=== PATIENT | female | born 1985 | race Hispanic/Latino ===

== ENCOUNTER 2020-04-09 22:32 | Observation (INO) | payer SELFPAY ==
[~2020-04-09] VITALS: Ht 167.6 cm; Wt 110.2 kg
[2020-04-09] MEDS ORDERED: LACTATED RINGERS 1000ML 1,000 ML IV SCH (22:45)
[2020-04-09] MEDS: LACTATED RINGERS 1000ML 1,000 ML IV SCH (23:15)
[2020-04-09 23:26] VITALS: BP 116/75
[2020-04-09] MEDS ORDERED: CALDOLOR 800MG+NS 250ML 250 ML IV PRN (23:30)
[2020-04-09] MEDS ORDERED: CITRIC ACID/SODIUM CITRATE 30 ML UDCUP PO PRN (23:30)
[2020-04-10] MEDS: LACTATED RINGERS 1000ML 1,000 ML IV SCH (00:39)
[2020-04-10] MEDS ORDERED: CEFAZOLIN SODIUM 1 GM VIAL IVP PRN (08:00)
== END 2020-04-10 08:00 | disposition home or self-care (01) ==
LOC: EDH 22:32 → LDH 22:33
PROVIDERS: ADMIT Obstetrics & Gynecology; ATTEND Obstetrics & Gynecology
DX: O36.8130 Decreased fetal movements, third trimester, not applicable or unspecified (principal); O60.03 Preterm labor without delivery, third trimester; Z20.828 Contact with and (suspected) exposure to other viral communicable diseases; Z3A.40 40 weeks gestation of pregnancy
CPT/HCPCS: 36415 ×2; 59025; 80305; 81001; 85027; 86592; 86701; 86850; 86900; 86901; 87088; 87340; 87390; 96360; 96361; 99284; G0378 ×3; J7120; U0003

== ENCOUNTER 2020-04-12 05:48 | Inpatient (IN) | payer OTHER ==
[~2020-04-12] VITALS: Ht 160 cm; Wt 112.9 kg
[~2020-04-12 05:48] MED LIST: FOLI0.8C PO; PNV1TABL62 PO
[2020-04-12] MEDS ORDERED: CALDOLOR 800MG+NS 250ML 250 ML IV PRN (06:00)
[2020-04-12] MEDS ORDERED: CEFAZOLIN SODIUM 1 GM VIAL IVP PRN (06:00)
[2020-04-12] MEDS ORDERED: LACTATED RINGERS 1000ML 1,000 ML IV SCH (06:00)
[2020-04-12 06:58] LABS: HEMATOCRIT 37.4 % (36-48); MEAN CORPUSCULAR HGB CONC 31.8 g/dL (32.0-36.0); RED BLOOD CELL COUNT(AUTO) 4.25 MIL/uL (4.00-5.50); RED CELL DISTRIBUTION WIDTH 15.2 % (11.0-15.5); WHITE BLOOD COUNT (AUTO) 5.9 K/uL (4.8-10.8)
[2020-04-12] MEDS ORDERED: DURAMORPH PF1 MG/ML 10ML AMP IV ONE (11:42)
[2020-04-12] MEDS ORDERED: CEFAZOLIN SODIUM 1 GM VIAL IVP ONE (11:45)
[2020-04-12] MEDS ORDERED: OXYTOCIN 10 USP UNITS/ML ONE (11:56)
[2020-04-12] MEDS ORDERED: ONDANSETRON HCL 4 MG/2 ML VIAL ONE ×2 (12:20→12:38)
[2020-04-12] MEDS ORDERED: EPHEDRINE SULFATE 50 MG/ML AMPULE ONE (12:27)
[2020-04-12] MEDS ORDERED: OXYTOCIN-LR 20 UNITS/1000 ML 1,000 ML IV PRN (12:30)
[2020-04-12] MEDS ORDERED: PROMETHAZINE HCL 25 MG/ML 1ML AMPULE IM PRN (12:30)
[2020-04-12] MEDS ORDERED: SODIUM CHLORIDE 0.9% 10 ML VIAL IVP PRN (12:30)
[2020-04-12] MEDS ORDERED: MEPERIDINE-PF 75 MG/ML SYG IM PRN (12:30)
[2020-04-12] MEDS ORDERED: OXYTOCIN-LR 20 UNITS/1000 ML 1,000 ML IV ONE (12:38)
[2020-04-12 13:45] VITALS: BP 117/74
[2020-04-12] MEDS ORDERED: ONDANSETRON HCL 4 MG/2 ML VIAL IVP PRN (13:45)
[2020-04-12] MEDS ORDERED: DiphenhydrAMINE HCL 50 MG/ML VIAL IVP PRN (13:45)
[2020-04-12] MEDS ORDERED: NALOXONE HCL 0.4 MG/1 ML ML IVP PRN ×3 (13:45)
[2020-04-12 16:00] VITALS: BP 109/69
[2020-04-12 19:50] VITALS: BP 117/61
[2020-04-12] MEDS: DEXTROSE 5 %-0.45 % NACL 1,000 ML IV PRN (20:22)
[2020-04-12] MEDS: CALDOLOR 800MG+NS 250ML 250 ML IV SCH (20:22)
[2020-04-13] VITALS: BP 111/63
[2020-04-13 04:03] VITALS: BP 113/63
[2020-04-13] MEDS: CALDOLOR 800MG+NS 250ML 250 ML IV SCH (04:03)
[2020-04-13] MEDS: DEXTROSE 5 %-0.45 % NACL 1,000 ML IV PRN (04:03)
--- NOTE | 2020-04-13 06:30 | NUR ---
DEMETRIO WHITE DISCONTINUED. PERICARE DONE. PT. ASSISTED UP IN CHAIR, WELL TOLERATED. INST TO CALL FOR ASSIST BEFORE GETTING OUT OF CHAIR TO BED OR TO BR, VERBALIZED UNDERSTANDING. Addendum: 04/13/20 at 0720 by VALERIE SALAZAR RN RN Amended: Links added.
[2020-04-13 07:03] LABS: HEMATOCRIT 31.2 % (36-48); MEAN CORPUSCULAR HEMOGLOBIN 28.3 pg (27.0-33.0); MEAN CORPUSCULAR HGB CONC 32.1 g/dL (32.0-36.0); MEAN CORPUSCULAR VOLUME 88.4 fL (79-99); RED BLOOD CELL COUNT(AUTO) 3.53 MIL/uL (4.00-5.50); RED CELL DISTRIBUTION WIDTH 15.1 % (11.0-15.5); WHITE BLOOD COUNT (AUTO) 9.1 K/uL (4.8-10.8)
[2020-04-13 08:00] VITALS: BP 117/65
[2020-04-13] MEDS ORDERED: ACETAMINOPHEN EXTRA STRENGTH 500 MG TABLET PO PRN (08:00)
[2020-04-13] MEDS ORDERED: BISACODYL 10 MG SUPP.RECT RC PRN (08:00)
[2020-04-13] MEDS ORDERED: IBUPROFEN 600 MG TABLET PO PRN (08:00)
[2020-04-13] MEDS ORDERED: ACETAMINOPHEN-CODEINE 300/30MG TAB PO PRN (08:00)
[2020-04-13] MEDS ORDERED: LANOLIN 30GM OINTMENT TP PRN (08:00)
[2020-04-13] MEDS ORDERED: HYDROCODONE/ACETAMINOPHEN 5/325 MG TAB PO PRN (08:00)
[2020-04-13] MEDS: SIMETHICONE 80 MG TAB.CHEW PO PRN ×2 (08:23→11:29)
[2020-04-13] MEDS ORDERED: DOCUSATE SODIUM 100 MG CAP PO SCH (09:00)
[2020-04-13 09:12] LABS: HEPATITIS Bs ANTIGEN SCREEN P Negative (Negative)
--- NOTE | 2020-04-13 09:15 | NUR ---
incisional dressing removed, incision is dry and intact with steri strips, applied abdominal binder. assisted to the bathroom, voided 300ml of clear urine, pericare done, encouraged to walk around the room Addendum: 04/13/20 at 0935 by WILBERT RODRIGUES RN Amended: Links added.
[2020-04-13] MEDS ORDERED: DOCU-116 PO (11:17)
[2020-04-13] MEDS ORDERED: IBUP-2077 PO (11:17)
[2020-04-13] MEDS ORDERED: ACET1TAB25 PO (11:18)
[2020-04-13 11:30] VITALS: BP 121/72
--- NOTE | 2020-04-13 15:01 | NUR ---
Drop In- care in [place] Pt under covid precautions, Sw spoke to pt via phone. Pt is from [facility] and has been [place] since February 2020. Pt states she in Jul 2019 to [place] [phone]. Pt has a 3yr daughter who is currently in [place] with pt's mother. Pt states is working on pt's immigration papers and she must remain in [place] until completed. Pt states that she and are staying at home of uncle Bal Muller [phone]. works as laborer [employer], pt is unemployed. They have no govt assistance at this time.Couple has car seat for NB as well as basic care items. Hailey Frankel will provider follow up care for NB RUFUS NADEEN HURTADO at [facility]. Pt reports she had care in [place] until February when she arrived and saw Dr Bobo in February and April. Pt denies need for referral or intervention at this time. Pt denies any hx with abuse,substance abuse, mental health, legal or CPS issues
--- NOTE | 2020-04-13 15:55 | NUR ---
verbal and written discharge instructions given. informed of the follow up appointment, prescription given. informed to call the doctor afor any future concerns. pt voiced understanding to all things discussed. Addendum: 04/13/20 at 1636 by WILBERT RODRIGUES RN Amended: Links added.
[2020-04-13 16:00] VITALS: BP 113/64
--- NOTE | 2020-04-13 18:55 | NUR ---
pt is dismissed in stable condition, brought to private car via wheelchair. Addendum: 04/13/20 at 1906 by WILBERT RODRIGUES RN Amended: Links added.
== END 2020-04-13 19:00 | disposition home or self-care (01) | DRG 788 ==
LOC: LDH 05:48 → WSH 13:35
PROVIDERS: ADMIT Obstetrics & Gynecology; ATTEND Obstetrics & Gynecology
PROC: 10D00Z1 Extraction of Products of Conception, Low, Open Approach (ICD-10-PCS; principal; 2020-04-12 07:00)
DX: O36.63X0 Maternal care for excessive fetal growth, third trimester, not applicable or unspecified (principal); Z3A.41 41 weeks gestation of pregnancy; Z37.0 Single live birth
CPT/HCPCS: 36415; 59510; 85027; 86592; 86701; 86850; 86900; 86901; 87340; 87390; A4344; G0378; J0690; J1741; J2175; J2274; J2405; J2550; J2590; J3490; J7120